=== PATIENT | female | born 1990 | race American Indian/Alaskan Native ===

== ENCOUNTER 2020-02-26 23:52 | Emergency (ER) | payer SELFPAY ==
[2020-02-27 00:12] VITALS: BP 102/44
[2020-02-27 01:03] LABS: Alanine Aminotransferase 9 units/L (7-56); Blood Urea Nitrogen 12 mg/dL (7-17); Calcium 8.7 mg/dL (8.4-10.2); Hemolysis Index 35
[2020-02-27 01:19] LABS: BUN/Creatinine Ratio 17
[2020-02-27 01:37] LABS: Hematocrit 39.6 % (30.3-42.9); Hemoglobin 13.2 gm/dl (10.1-14.3); Mean Corpuscular HGB Conc 33 % (30-34); Mean Corpuscular Volume 91 fl (79-97); Platelet Count 292 K/mm3 (140-440); Red Blood Count 4.34 M/mm3 (3.65-5.03); Red Cell Distribution Width 15.7 % (13.2-15.2)
--- NOTE | 2020-02-27 01:58 | XRay Report ---
CHEST 2 VIEWS INDICATION: chestpain. COMPARISON: None. FINDINGS: Support devices: None. Heart: Within normal limits. Lungs/Pleura: No acute air space or interstitial disease. No significant pleural effusion. IMPRESSION: No acute findings. Signer Name: Simon Nichols MD Signed: 02/27/2020 1:53 AM Workstation Name: [id number]
--- NOTE | 2020-02-27 02:25 | Emergency Department Report ---
ED Chest Pain HPI - General Chief Complaint: Chest Pain Stated Complaint: CHEST PAIN Time Seen by Provider: 02/27/20 00:39 Source: patient Mode of arrival: Ambulatory Limitations: No Limitations - History of Present Illness Initial Comments: 29-year-old -[place] female without past medical history presents with complaints of left substernal chest pain intermittently x1 month. Patient states pain occurs only with deep breathing and certain movements of the chest wall. She rates her pain as a 7/10 in severity describes it as stabbing. She d enies any cough, hemoptysis, shortness of breath, leg pain/swelling, history of DVT/PE/cancer, hormone use, recent long travel/surgeries, or fever/chills/sweats. She has not tried any medicine for her symptoms up to this point per patient. 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 She also denies any personal history or family history of heart disease. - Related Data Previous Rx's Medication Instructions Recorded Last Taken Type Ciprofloxacin HCl [Ciprofloxacin 500 mg PO Q12H #20 tab 06/11/15 Unknown Rx TAB] Phenazopyridine [Pyridium] 100 mg PO TID #6 tab 06/11/15 Unknown Rx Amoxicillin/Potassium Clav 1 each PO BID #14 tablet 01/10/20 Unknown Rx [Augmentin 875-125 Tablet] methylPREDNISolone [Medrol 4MG 4 mg PO BID #14 tab.ds.pk 01/10/20 Unknown Rx DOSEPAK (21 tabs)] Ibuprofen [Motrin 800 MG tab] 800 mg PO Q8HR PRN #21 tablet 02/27/20 Unknown Rx methOCARBAMOL [Robaxin TAB] 750 mg PO Q8H PRN #15 tablet 02/27/20 Unknown Rx Allergies Allergy/AdvReac Type Severity Reaction Status Date / Time No Known Allergies Allergy Unverified 06/11/15 08:54 Heart Score - HEART Score History: Slightly suspicious EKG: Normal Age: < 45 Risk factors: No known risk factors Troponin: < normal limit HEART Score: 0 - Critical Actions Critical Actions: 0-3 pts:0.9-1.7%risk of adverse cardiac event.Candidate for discharge ED Review of Systems ROS: Stated complaint: CHEST PAIN Other details as noted in HPI Constitutional: denies: chills, fever Eyes: denies: vision change ENT: denies: throat pain Respiratory: denies: cough, shortness of breath Cardiovascular: chest pain. denies: edema, syncope Gastrointestinal: denies: abdominal pain, nausea, vomiting Musculoskeletal: denies: back pain Skin: denies: rash, lesions, change in color Neurological: denies: headache, weakness Hematological/Lymphatic: denies: swollen glands ED Past Medical Hx - Past Medical History Previous Medical History?: No - Surgical History Past Surgical History?: No - Social History Smoking Status: Never Smoker Substance Use Type: None - Medications Home Medications: Home Medications Medication Instructions Recorded Confirmed Last Taken Type Ciprofloxacin HCl [Ciprofloxacin 500 mg PO Q12H #20 tab 06/11/15 Unknown Rx TAB] Phenazopyridine [Pyridium] 100 mg PO TID #6 tab 06/11/15 Unknown Rx Amoxicillin/Potassium Clav 1 each PO BID #14 tablet 01/10/20 Unknown Rx [Augmentin 875-125 Tablet] methylPREDNISolone [Medrol 4MG 4 mg PO BID #14 tab.ds.pk 01/10/20 Unknown Rx DOSEPAK (21 tabs)] Ibuprofen [Motrin 800 MG tab] 800 mg PO Q8HR PRN #21 tablet 02/27/20 Unknown Rx methOCARBAMOL [Robaxin TAB] 750 mg PO Q8H PRN #15 tablet 02/27/20 Unknown Rx ED Physical Exam - General Limitations: No Limitations General appearance: alert, in no apparent distress - Head Head exam: Present: atraumatic, normocephalic - Eye Eye exam: Present: normal appearance - ENT ENT exam: Present: mucous membranes moist - Neck Neck exam: Present: normal inspection - Respiratory Respiratory exam: Present: normal lung sounds bilaterally, chest wall tenderness (Left parasternal tenderness to palpation noted without deformity). Absent: respiratory distress - Cardiovascular Cardiovascular Exam: Present: regular rate, normal rhythm. Absent: systolic murmur, diastolic murmur, rubs, gallop - GI/Abdominal GI/Abdominal exam: Present: soft. Absent: distended, tenderness, guarding, rebound, rigid - Extremities Exam Extremities exam: Present: normal inspection. Absent: calf tenderness (No swelling or tenderness noted to legs bilaterally) - Back Exam Back exam: Present: normal inspection - Neurological Exam Neurological exam: Present: alert, oriented X3 - Psychiatric Psychiatric exam: Present: normal affect, normal mood - Skin Skin exam: Present: warm, dry, intact, normal color. Absent: rash ED Course Vital Signs 02/27/20 00:06 Temperature 98.0 F Pulse Rate 65 Respiratory 18 Rate Blood Pressure 102/44 O2 Sat by Pulse 100 Oximetry ED Medical Decision Making - Lab Data Result diagrams: 02/27/20 00:22 02/27/20 00:22 Lab Results 02/27/20 02/27/20 02/27/20 Range/Units 00:22 00:22 00:22 WBC 6.0 (4.5-11.0) K/mm3 RBC 4.34 (3.65-5.03) M/mm3 Hgb 13.2 (10.1-14.3) gm/dl Hct 39.6 (30.3-42.9) % MCV 91 (79-97) fl MCH 30 (28-32) pg MCHC 33 (30-34) % RDW 15.7 H (13.2-15.2) % Plt Count 292 (140-440) K/mm3 Lymph % (Auto) [employer] Payne % (Auto) [employer] Eos % (Auto) [employer] Baso % (Auto) [employer] Lymph # [employer] Payne # [employer] Eos # [employer] Baso # [employer] Seg Neutrophils % [employer] Seg Neutrophils # [employer] Sodium 137 (137-145) mmol/L Potassium 4.0 (3.6-5.0) mmol/L Chloride 103.0 (98-107) mmol/L Carbon Dioxide 22 (22-30) mmol/L Anion Gap 16 mmol/L BUN 12 (7-17) mg/dL Creatinine 0.7 (0.6-1.2) mg/dL Estimated GFR > 60 ml/min BUN/Creatinine Ratio 17 % Glucose 92 (65-100) mg/dL Calcium 8.7 (8.4-10.2) mg/dL Total Bilirubin 0.30 (0.1-1.2) mg/dL AST 14 (5-40) units/L ALT 9 (7-56) units/L Alkaline Phosphatase 48 (35-129) units/L Troponin T < 0.010 (0.00-0.029) ng/mL Total Protein 7.7 (6.3-8.2) g/dL Albumin 4.0 (3.9-5) g/dL Albumin/Globulin Ratio 1.1 % HCG, Qual Negative (Negative) - EKG Data EKG shows normal: sinus rhythm Rate: bradycardia (58 bpm) - EKG Data Interpretation: normal EKG - Radiology Data Radiology results: report reviewed CHEST 2 VIEWS INDICATION: chestpain. COMPARISON: None. FINDINGS: Support devices: None. Heart: Within normal limits. Lungs/Pleura: No acute air space or interstitial disease. No significant pleural effusion. IMPRESSION: No acute findings. - Medical Decision Making Patient here with complaints of intermittent left parasternal chest pain. On exam there is tenderness to palpation of the left costochondral area. Physical exam is otherwise normal. CBC, CMP, troponin, EKG, and chest x-ray are normal. Heart score = 0. PERC score = 0. suspect patient's symptoms are due to costochondritis. Her vitals are normal, she is well-appearing, and stable for discharge home. Recommend follow-up with primary care. Strict return precautions were discussed in detail with patient who verbalized understanding. Critical care attestation.: If time is entered above; I have spent that time in minutes in the direct care of this critically ill patient, excluding procedure time. ED Disposition Clinical Impression: Costochondritis, acute Disposition: DC-01 TO HOME OR SELFCARE Is pt being admited?: No Condition: Stable Instructions: Costochondritis (ED) Prescriptions: Ibuprofen [Motrin 800 MG tab] 800 mg PO Q8HR PRN #21 tablet PRN Reason: pain methOCARBAMOL [Robaxin TAB] 750 mg PO Q8H PRN #15 tablet PRN Reason: muscle tightness Referrals: [facility] [Provider Group] - 3-5 Days
== END 2020-02-27 02:54 | disposition home or self-care (01) ==
LOC: ED 23:52
DX: M94.0 Chondrocostal junction syndrome [Tietze] (principal); Z79.899 Other long term (current) drug therapy
CPT/HCPCS: 36415; 71046; 80053; 84484; 84703; 85025; 93005